=== PATIENT | female | born 1965 | race Caucasian/White ===

== ENCOUNTER 2019-10-04 03:12 | Emergency (ER) | payer OTHER ==
[~2019-10-04] VITALS: Ht 152.4 cm; Wt 59.6 kg
[~2019-10-04 03:12] MED LIST: ABAT125S SQ; ACET650T17 PO; CHOL2000 PO; CYAN100063 PO; ETAN50PE; FERR325T18 PO; LANS30CA60; LEVO100T PO; PRED10TA PO; PRED5TAB PO
[2019-10-04] MEDS ORDERED: ONDANSETRON 2MG/ML, 2ML ONE (03:49)
[2019-10-04 03:57] LABS: BASOPHILS # (AUTO) 0.03 x10^3/uL (0-0.1); BASOPHILS % (AUTO) 0 % (0-1); EOSINOPHILS # (AUTO) 0.05 x10^3/uL (0-0.4); EOSINOPHILS % (AUTO) 1 % (1-7); LYMPHOCYTES # (AUTO) 1.25 x10^3/uL (1-3.4); LYMPHOCYTES % (AUTO) 18 % (22-44); MD NO; MEAN CORPUSCULAR HEMOGLOBIN 32.2 pg (27.0-34.8); MEAN CORPUSCULAR HGB CONC 34.1 g/dL (32.4-35.8); MEAN CORPUSCULAR VOLUME 94.3 fL (80-100); MEAN PLATELET VOLUME 8.9 fL (7.4-10.4); MONOCYTES # (AUTO) 0.41 x10^3/uL (0.2-0.8); MONOCYTES % (AUTO) 6 % (2-9); NEUTROPHILS % (AUTO) 75 % (42-75); PLATELET COUNT 261 x10^3/uL (130-400); RED BLOOD COUNT 5.03 x10^6/uL (3.82-5.3); RED CELL DISTRIBUTION WIDTH 12.9 % (9.6-15.2)
[2019-10-04] MEDS ORDERED: MAGNESIUM CITRATE 300ML ORAL SOL PO ONE (04:00)
[2019-10-04] MEDS ORDERED: ONDANSETRON 2MG/ML, 2ML IVPush ONE (04:00)
[2019-10-04] MEDS ORDERED: PINK LADY ENEMA 490 ML BOTTLE PR ONE (04:00)
[2019-10-04] MEDS ORDERED: SODIUM CHLORIDE 0.9% 1,000ML IVBOLUS ONE (04:00)
[2019-10-04] MEDS ORDERED: SODIUM CHLORIDE FLUSH 10ML SYR IVF ONE (04:00)
[2019-10-04] MEDS ORDERED: MAGNESIUM CITRATE 300ML ORAL SOL ONE (04:05)
[2019-10-04 04:09] LABS: ALANINE AMINOTRANSFERASE 42 U/L (12-78); ALBUMIN 4.4 g/dL (3.4-5.0); ANION GAP 7 mmol/L (5-15); CALCIUM 9.5 mg/dL (8.5-10.1); CHLORIDE 106 mmol/L (98-107); CREATININE 0.82 mg/dL (0.55-1.02)
[2019-10-04 04:11] LABS: ALKALINE PHOSPHATASE 148 U/L (45-117); BILIRUBIN,TOTAL 0.6 mg/dL (0.2-1.0); TOTAL PROTEIN 7.7 g/dL (6.4-8.2)
--- NOTE | 2019-10-04 04:45 | NUR ---
PT MEDICATED PER EMAR, ENEMA STARTED, PT TOLERATING WELL.
[2019-10-04 05:24] VITALS: BP 161/85
== END 2019-10-04 05:43 | disposition home or self-care (01) ==
LOC: ED 04:10
DX: K59.00 Constipation, unspecified (principal); R11.2 Nausea with vomiting, unspecified; M06.9 Rheumatoid arthritis, unspecified; Z90.710 Acquired absence of both cervix and uterus
CPT/HCPCS: 36415; 74022; 80053; 83690; 85025; 96361; 96374; 99284; J2405; J7030

== ENCOUNTER 2019-12-07 08:16 | Emergency (ER) | payer OTHER ==
[~2019-12-07] VITALS: Ht 152.4 cm; Wt 58.2 kg
--- NOTE | 2019-12-07 08:37 | NUR ---
FIRST CONTACT WITH PT. ON SATURDAY, FELT NAUSEATED. SATURDAY FELT SINUS BLOCKAGE. TODAY STTED FEELS THROAT FEELS CONSTRICTED WITH MUCUS AND STILL HAVING NAUSEA. STATED FEELS DEHYDRATED FROM ALL THE ANTIHISTAMINES AND HAS NEW LOWER BACK PAIN. PT'S AOX4. RESPS EVEN AND UNLABORED. BP/SPO2 MONITORS IN PLACE. CALL LIGHT WITHIN REACH. EDMD AT BEDSIDE TO EVALUATE AT THIS TIME.
[2019-12-07 08:51] LABS: BASOPHILS # (AUTO) 0.02 x10^3/uL (0-0.1); BASOPHILS % (AUTO) 1 % (0-1); EOSINOPHILS # (AUTO) 0.12 x10^3/uL (0-0.4); EOSINOPHILS % (AUTO) 3 % (1-7); LYMPHOCYTES # (AUTO) 1.13 x10^3/uL (1-3.4); LYMPHOCYTES % (AUTO) 32 % (22-44); MD NO; MEAN CORPUSCULAR HEMOGLOBIN 32.9 pg (27.0-34.8); MEAN CORPUSCULAR HGB CONC 34.2 g/dL (32.4-35.8); MEAN CORPUSCULAR VOLUME 96.1 fL (80-100); MEAN PLATELET VOLUME 8.4 fL (7.4-10.4); MONOCYTES # (AUTO) 0.38 x10^3/uL (0.2-0.8); MONOCYTES % (AUTO) 11 % (2-9); NEUTROPHILS # (AUTO) 1.94 x10^3/uL (1.8-6.8); NEUTROPHILS % (AUTO) 54 % (42-75); PLATELET COUNT 250 x10^3/uL (130-400)
[2019-12-07 09:04] LABS: ALBUMIN 4.3 g/dL (3.4-5.0); ANION GAP 8 mmol/L (5-15); CALCIUM 9.4 mg/dL (8.5-10.1); CHLORIDE 107 mmol/L (98-107); CREATININE 0.98 mg/dL (0.55-1.02)
--- NOTE | 2019-12-07 09:50 | NUR ---
PT RESTING IN [facility]. RESPS EVEN AND UNLABORED. BP/SPO2 MONITORS IN PLACE. CALL LIGHT WITHIN REACH.
--- NOTE | 2019-12-07 10:25 | NUR ---
PT AMB TO BR AND BACK TO ROOM WITH STEADY GAIT.
[2019-12-07 10:30] VITALS: BP 139/92
--- NOTE | 2019-12-07 10:43 | NUR ---
TASK RN NOTE: DC ORDERS RECEIVED. PT GIVEN DC INSTRUCTIONS AND SCRIPT, EDUCATED REGARDING RX FOR PREDNISONE AND ALBUTEROL. PT A&O, RESPS EVEN AND UNLABORED. AMBULATORY TO DC DESK WITH STEADY GAIT. PT HAS NO COMPLAINT AT TIME OF DC, GIVEN INSTRUCTIONS TO SELF QUARANTINE AND AWAIT COVID RESULTS.
== END 2019-12-07 10:44 | disposition home or self-care (01) ==
LOC: ED 08:48
DX: Z03.818 Encounter for observation for suspected exposure to other biological agents ruled out (principal); J98.01 Acute bronchospasm; J00 Acute nasopharyngitis [common cold]; E86.0 Dehydration; M54.5 Low back pain; M06.9 Rheumatoid arthritis, unspecified; Z90.710 Acquired absence of both cervix and uterus; Z87.891 Personal history of nicotine dependence
CPT/HCPCS: 36415; 71045; 80048; 82040; 85025; 99284; U0001

== ENCOUNTER 2020-01-26 07:03 | Emergency (ER) | payer OTHER ==
[~2020-01-26] VITALS: Ht 152.4 cm; Wt 56.8 kg
[2020-01-26 07:06] VITALS: BP 135/83
--- NOTE | 2020-01-26 07:16 | NUR ---
PT STATED SHE DOES NOT WANT TO GO TO THE RESP SIDE OF THE ER , EVEN THOUGH SHE IS EXHIBITING COVID SYMPTOMS, SHE STATED SHE DOES NOT HAVE COVID. RHEOLOGIST AND SUP MADE AWARE. EXPLAINED TO PT, ACCORDING TO HOSPITAL POLICY HER SYMPTOMS QUALIFY HER TO BE IN RESP SIDE OF ER. PT UPSET HER VISITOR WOULD NOT BE ALLOWED IN ROOM, STATED SHE WILL LEAVE THEN, REMOVED BP AND O2 SAT MONITORS AND WALKED OUT OF TRIAGE.
== END 2020-01-26 07:23 | disposition left against medical advice (07) ==
LOC: ED 07:12
DX: R11.10 Vomiting, unspecified (principal); M79.10 Myalgia, unspecified site; Z53.21 Procedure and treatment not carried out due to patient leaving prior to being seen by health care provider

== ENCOUNTER 2020-01-28 08:10 | Emergency (ER) | payer OTHER ==
[~2020-01-28] VITALS: Ht 152.4 cm; Wt 56.7 kg
[2020-01-28 08:15] VITALS: BP 129/78
--- NOTE | 2020-01-28 09:06 | NUR ---
RESOLUTE PROFESSIONAL: PT WALKED BACK FROM LOBBY TO ROOM AT THIS TIME.
[2020-01-28] MEDS ORDERED: LORazepam 1MG TABLET ONE (09:26)
[2020-01-28] MEDS ORDERED: LORazepam 1MG TABLET PO ONE (09:30)
--- NOTE | 2020-01-28 09:33 | NUR ---
PT HAS CO OF INSOMNIA, MEDICATIONS HAVE FAILED, PT STATES SHE CANNOT SLEEP MORE THAN 4 HOURS. PT ANXIOUS, TEARFUL, NAUSEAS. DENIES CP OR SOB. MANAGER UNIX APPLIED.
[2020-01-28 09:34] LABS: BASOPHILS # (AUTO) 0.02 x10^3/uL (0-0.1); BASOPHILS % (AUTO) 0 % (0-1); EOSINOPHILS # (AUTO) 0.06 x10^3/uL (0-0.4); EOSINOPHILS % (AUTO) 1 % (1-7); LYMPHOCYTES # (AUTO) 1.33 x10^3/uL (1-3.4); LYMPHOCYTES % (AUTO) 28 % (22-44); MD NO; MEAN CORPUSCULAR HEMOGLOBIN 32.1 pg (27.0-34.8); MEAN CORPUSCULAR HGB CONC 33.7 g/dL (32.4-35.8); MEAN CORPUSCULAR VOLUME 95.1 fL (80-100); MEAN PLATELET VOLUME 8.4 fL (7.4-10.4); MONOCYTES % (AUTO) 8 % (2-9); NEUTROPHILS # (AUTO) 3.02 x10^3/uL (1.8-6.8); NEUTROPHILS % (AUTO) 63 % (42-75); PLATELET COUNT 265 x10^3/uL (130-400); RED BLOOD COUNT 4.93 x10^6/uL (3.82-5.3); RED CELL DISTRIBUTION WIDTH 11.9 % (9.6-15.2)
[2020-01-28 09:46] LABS: ALBUMIN 3.1 g/dL (3.4-5.0); ANION GAP 4 mmol/L (5-15); CALCIUM 8.6 mg/dL (8.5-10.1); CHLORIDE 107 mmol/L (98-107)
[2020-01-28 09:57] LABS: ALANINE AMINOTRANSFERASE 37 U/L (12-78); ALKALINE PHOSPHATASE 118 U/L (45-117); BILIRUBIN,TOTAL 0.6 mg/dL (0.2-1.0); CREATININE 0.86 mg/dL (0.55-1.02); TOTAL PROTEIN 7.8 g/dL (6.4-8.2)
--- NOTE | 2020-01-28 10:37 | NUR ---
Patient/Caregiver given discharge instructions and they have confirmed that they understand the instructions. Patient ambulatory with steady gait.
== END 2020-01-28 10:06 ==
LOC: ED 09:59
DX: F41.1 Generalized anxiety disorder (principal); F51.04 Psychophysiologic insomnia; F51.01 Primary insomnia; R11.2 Nausea with vomiting, unspecified; R10.9 Unspecified abdominal pain; E03.9 Hypothyroidism, unspecified; M06.9 Rheumatoid arthritis, unspecified; Z87.891 Personal history of nicotine dependence
CPT/HCPCS: 36415; 80053; 83690; 84443; 85025; 99283

== ENCOUNTER → 2020-04-28 | Outpatient (CLI) | payer OTHER ==
[~2020-04-28] MED LIST changes: +CHOL10003 PO; +HYDR-826 PO; +LEVO50TA PO; +ONDA4TAB13 SL; +TOCI162D SQ
== END | disposition home or self-care (01) ==
LOC: STAR 14:20
PROVIDERS: ATTEND Anesthesiology
DX: Z20.828 Contact with and (suspected) exposure to other viral communicable diseases (principal)
CPT/HCPCS: 36415; 87635

== ENCOUNTER 2020-05-02 06:01 | Day surgery (SDC) | payer OTHER ==
[~2020-05-02] VITALS: Ht 152.4 cm; Wt 55.7 kg
[~2020-05-02 06:01] MED LIST changes: -CHOL10003 PO; -HYDR-826 PO; -LEVO50TA PO; -ONDA4TAB13 SL; -TOCI162D SQ
[2020-05-02] MEDS ORDERED: EPINEPHRINE 1 MG/ML, 1ML ONE (06:42)
[2020-05-02] MEDS ORDERED: BUPIVACAINE/PF 0.25% ONE (06:42)
[2020-05-02] MEDS ORDERED: LACTATED RINGERS 1,000 ML IV SCH (06:57)
[2020-05-02] MEDS ORDERED: CHLORHEXIDINE 15 ML UDC MM STA (06:57)
[2020-05-02 07:14] VITALS: BP 137/90
[2020-05-02] MEDS ORDERED: TOCI162D SQ (07:21)
[2020-05-02] MEDS ORDERED: LEVO50TA PO (07:21)
[2020-05-02] MEDS ORDERED: CHOL10003 PO (07:21)
[2020-05-02] MEDS ORDERED: HYDR-826 PO (07:21)
[2020-05-02] MEDS ORDERED: ONDA4TAB13 SL (07:21)
[2020-05-02] MEDS ORDERED: FENTANYL PF 250 MCG/5ML ONE (08:01)
[2020-05-02] MEDS ORDERED: MIDAZOLAM 1 MG/ML, 2ML ONE (08:01)
[2020-05-02] MEDS ORDERED: PROPOFOL 10 MG/ML, 20ML ONE (08:29)
[2020-05-02] MEDS ORDERED: SUCCINYLCHOLINE 20 MG/ML, 10ML ONE (08:29)
[2020-05-02] MEDS ORDERED: DEXAMETHASONE 4 MG/ML, 1ML ONE (08:29)
[2020-05-02] MEDS ORDERED: GLYCOPYRROLATE 0.2MG/1ML, 5ML ONE (08:29)
[2020-05-02] MEDS ORDERED: NEOSTIGMINE 1 MG/ML, 10ML ONE (08:29)
[2020-05-02] MEDS ORDERED: ROCURONIUM 10MG/ML,5ML ONE (08:29)
[2020-05-02] MEDS ORDERED: CEFAZOLIN 1,000 MG ONE (08:29)
[2020-05-02] MEDS ORDERED: ONDANSETRON 2MG/ML, 2ML ONE (08:29)
[2020-05-02] MEDS ORDERED: KETOROLAC 30 MG/1 ML ONE (08:30)
[2020-05-02] MEDS ORDERED: SUGAMMADEX 200 MG/2 ML IVPush ONE (08:43)
[2020-05-02] MEDS ORDERED: PROMETHAZINE 25 MG/ML, 1ML ONE (08:57)
[2020-05-02] MEDS ORDERED: ONDANSETRON 2MG/ML, 2ML IVPush PRN (09:00)
[2020-05-02] MEDS ORDERED: ACETAMINOPHEN 325 MG TABLET PO PRN (09:00)
[2020-05-02] MEDS ORDERED: HYDROmorphone 1 MG/ML, 1ML INJ IVPush PRN (09:00)
[2020-05-02] MEDS ORDERED: OXYcodone 5 MG/5 ML ORAL.SOL UDC PO PRN (09:00)
[2020-05-02] MEDS ORDERED: PROMETHAZINE 25 MG/ML, 1ML IVPush PRN (09:00)
[2020-05-02] MEDS ORDERED: LABETALOL 5MG/ML, 20ML IV PRN (09:00)
[2020-05-02] MEDS ORDERED: hydrALAzine 20 MG/ML, 1ML IV PRN (09:00)
[2020-05-02] MEDS ORDERED: PROMETHAZINE 25 MG SUPP PR PRN (09:00)
[2020-05-02] MEDS ORDERED: OXYcodone 5 MG/5 ML ORAL.SOL UDC ONE (09:12)
[2020-05-02] MEDS ORDERED: FENTANYL PF 100 MCG/2ML ONE (09:12)
[2020-05-02] MEDS ORDERED: ACETAMINOPHEN 650 MG/20.3 ML UDC ONE (09:12)
[2020-05-02] MEDS: FENTANYL PF 100 MCG/2ML IV PRN ×3 (09:15→09:45)
[2020-05-02] MEDS ORDERED: METHOCARBAMOL 1,000 MG in DEXTROSE 5% 100 ML IV PRN (09:30)
== END 2020-05-02 13:15 | disposition home or self-care (01) ==
LOC: OUT 06:01
PROVIDERS: ATTEND Surgery
DX: K80.10 Calculus of gallbladder with chronic cholecystitis without obstruction (principal); M19.90 Unspecified osteoarthritis, unspecified site; E03.9 Hypothyroidism, unspecified; Z79.899 Other long term (current) drug therapy; Z79.890 Hormone replacement therapy; Z87.891 Personal history of nicotine dependence; Z88.5 Allergy status to narcotic agent; Z98.51 Tubal ligation status; Z90.710 Acquired absence of both cervix and uterus; Z83.3 Family history of diabetes mellitus; Z83.42 Family history of familial hypercholesterolemia; Z83.49 Family history of other endocrine, nutritional and metabolic diseases
CPT/HCPCS: 47562; 88304; J0171; J0330; J0690; J1100; J1885; J2250; J2405; J2550; J2704; J2710; J2800; J3010

== ENCOUNTER 2020-05-19 13:10 | Emergency (ER) | payer OTHER ==
[~2020-05-19] VITALS: Ht 152.4 cm; Wt 54.6 kg
[~2020-05-19 13:10] MED LIST changes: +CHOL10003 PO; +HYDR-826 PO; +LEVO50TA PO; +ONDA4TAB13 SL; +TOCI162D SQ
[2020-05-19] MEDS ORDERED: LORazepam 1MG TABLET PO ONE (14:00)
[2020-05-19 14:03] LABS: BASOPHILS % (AUTO) 1 % (0-1); EOSINOPHILS % (AUTO) 1 % (1-7); LYMPHOCYTES % (AUTO) 30 % (22-44); MEAN CORPUSCULAR HEMOGLOBIN 31.7 pg (27.0-34.8); MEAN PLATELET VOLUME 8.3 fL (7.4-10.4); MONOCYTES % (AUTO) 10 % (2-9); NEUTROPHILS % (AUTO) 58 % (42-75); PLATELET COUNT 321 x10^3/uL (130-400); RED BLOOD COUNT 4.72 x10^6/uL (3.82-5.3); RED CELL DISTRIBUTION WIDTH 12.1 % (9.6-15.2)
[2020-05-19 14:09] LABS: MD NO
[2020-05-19 14:10] LABS: ALANINE AMINOTRANSFERASE 27 U/L (12-78); ALBUMIN 4.2 g/dL (3.4-5.0); ANION GAP 5 mmol/L (5-15); CALCIUM 9.6 mg/dL (8.5-10.1); CHLORIDE 109 mmol/L (98-107); CREATININE 0.81 mg/dL (0.55-1.02)
[2020-05-19 14:12] LABS: ALKALINE PHOSPHATASE 128 U/L (45-117); BILIRUBIN,TOTAL 0.5 mg/dL (0.2-1.0)
--- NOTE | 2020-05-19 15:50 | NUR ---
PT TO ROOM FROM LOBBY AT THIS TIME.
[2020-05-19] MEDS ORDERED: LORazepam 1MG TABLET ONE (16:02)
--- NOTE | 2020-05-19 16:15 | NUR ---
PT MEDICATED PER ORDERS. STILL SHAKY, STATES HER SYMPTOMS HAVE BEEN GOING ON FOR WEEKS. RV'WD POC WITH PT. AT BS. CHART UP FOR RECHECK.
[2020-05-19 17:21] LABS: FREE T4 (FREE THYROXINE) 1.05 ng/dL (0.76-1.46)
--- NOTE | 2020-05-19 17:47 | NUR ---
ERP AT FOR RECHECK NOW.
[2020-05-19 18:09] VITALS: BP 127/80
--- NOTE | 2020-05-19 18:09 | NUR ---
D/C INSTRUCTIONS, MEDS & F/U APPT RV'WD WITH PT, SHE VERBALIZES UNDERSTANDING. RX GIVEN X1. PT AMBULATED OUT OF ED WITH WITHOUT DIFFICULTY.
== END 2020-05-19 18:10 | disposition home or self-care (01) ==
LOC: ED 16:56
DX: R10.84 Generalized abdominal pain (principal); R11.2 Nausea with vomiting, unspecified; R25.1 Tremor, unspecified; E03.9 Hypothyroidism, unspecified; M06.9 Rheumatoid arthritis, unspecified; Z90.49 Acquired absence of other specified parts of digestive tract; Z90.710 Acquired absence of both cervix and uterus
CPT/HCPCS: 36415; 80053; 84439; 84443; 85025; 86376; 93005; 99284

== ENCOUNTER → 2020-10-05 | Outpatient (CLI) | payer OTHER | END | disposition home or self-care (01) | LOC: RAD 09:47 | PROVIDERS: ATTEND Internal Medicine Gastroenterology | DX: R11.0 Nausea (principal); M06.9 Rheumatoid arthritis, unspecified; E03.9 Hypothyroidism, unspecified; E55.9 Vitamin D deficiency, unspecified | CPT/HCPCS: 78264; A9541 ==